=== PATIENT | male | born 2000 | race Caucasian/White ===

== ENCOUNTER 2018-12-13 02:34 | Emergency (ER) | payer SELFPAY ==
[~2018-12-13] VITALS: Ht 152.4 cm; Wt 65.8 kg
[2018-12-13 02:44] VITALS: Ht 152.4 cm; Wt 65.8 kg
[2018-12-13 05:24] VITALS: BP 144/85
== END 2018-12-13 05:25 | disposition home or self-care (01) ==
LOC: D.ER 02:34
DX: S01.01XA Laceration without foreign body of scalp, initial encounter (principal); S31.119A Laceration without foreign body of abdominal wall, unspecified quadrant without penetration into peritoneal cavity, initial encounter; Y04.2XXA Assault by strike against or bumped into by another person, initial encounter; Y93.89 Activity, other specified; Y92.89 Other specified places as the place of occurrence of the external cause